=== PATIENT | female | born 2000 | race African-American/Black ===

== ENCOUNTER 2024-03-23 07:44 | Outpatient (CLI) | payer OTHER, SELFPAY ==
--- NOTE | 2024-03-23 07:45 | US_ITS ---
PROCEDURE: US TRANSVAGINAL CLINICAL INDICATION: amenorrhea COMPARISON: No exams were available for comparison FINDINGS: Transvaginal sonographic images of the pelvis were obtained. UTERUS: 7.3cm x 4.2cmx 3.6 cm anteverted then became retroverted during the exam with a combined endometrial thickness of 9.4mm. LEFT OVARY: 3.2cmx2.3cmx1.6cm with a volume of 6ml. There is a dominant follicle measuring 1.3 x 0.8 x 0.9 cm. The ovary has a polycystic appearance. RIGHT OVARY: 3.5cmx 1.8 cmx2.0cm with a volume of 6.6ml. The ovary has a polycystic appearance. Both ovaries are seen and appear polycystic. Doppler flow to both ovaries are seen. There is trace fluid in the cul-de-sac. IMPRESSION: 1. Anteverted uterus normal in shape and size that became retroverted during the procedure. The endometrium is 9.4 mm. 2. Both ovaries are seen and appear polycystic. The left ovary has a dominant follicle measuring 1.3 cm 3. There is trace fluid in the cul-de-sac. Dictated by: Devante Mistry MD 03/23/2024 09:58 Devante Mistry MD in OV 03/23/2024 09:58
[2024-03-23 09:46] LABS: Basophils # 0.1 K/mm3 (0-0.2); Basophils % 0.7 % (0.1-2.0); Eosinophils # 0.2 K/mm3 (0.0-0.4); Eosinophils % 2.3 % (0.1-12.0); Hematocrit 42.1 % (37.0-47.0); Hemoglobin 13.8 g/dL (12.2-16.2); Lymphocytes # 3.3 K/mm3 (0.7-4.5); Lymphocytes % 38.6 % (10-50); Mean Corpuscular HGB Conc 32.8 g/dL (31.8-35.4); Mean Corpuscular Volume 85.4 fl (81-99); Mean Platelet Volume 8.3 fl (7.4-10.4); Monocytes # 0.4 K/mm3 (0.1-1.0); Monocytes % 4.7 % (1.7-9.3); Neutrophils # 4.6 K/mm3 (1.8-7.8); Neutrophils % 53.6 % (37.0-80.0); Platelet Count 289 K/mm3 (142-424); Red Blood Count 4.93 M/mm3 (4.20-5.40); Red Cell Distribution Width 14.2 % (11.5-17.5); White Blood Count 8.5 K/mm3 (4.8-10.8)
[2024-03-23 10:02] LABS: Alanine Aminotransferase 24 U/L (12-78); Albumin Level 4.6 g/dl (3.5-5.0); Albumin/Globulin Ratio 1.4 (1.1-1.8); Alkaline Phosphatase 99 U/L (38-126); Aspartate Amino Transferase 28 U/L (14-36); Bilirubin,Total 0.3 mg/dl (0.2-1.3); Blood Urea Nitrogen 14 mg/dl (7-17); Carbon Dioxide 24 mmol/L (22.0-30.0); Chloride 103 mmol/L (98-107); Estimated Glomerular Filt Rate 76 ml/min (>60); GFR (African American) 92 ML/MIN (>60); Globulin 3.2 g/dL (1.3-3.2); Glucose 103 mg/dl (74-100); Sodium 139 mmol/L (136-145); Total Protein,Serum 7.8 g/dl (6.3-8.2)
[2024-03-23 10:29] LABS: Thyroid Stimulating Hormone 4.84 uIU/mL (0.465-4.68)
[2024-03-24 11:08] LABS: FSH 2.9 mIU/mL (.)
[2024-03-24 13:30] LABS: LH 19.3 mIU/mL (.); Prolactin 30.5 ng/mL (4.8-33.4)
[2024-03-30 06:00] LABS: Free Testosterone (Direct) 0.9 pg/mL (0.0-4.2); Testosterone, Total, LC/MS 60.5 ng/dL (10.0-55.0)
== END 2024-03-23 23:59 | disposition home or self-care (01) ==
PROVIDERS: Visit Provider Obstetrics & Gynecology
DX: E28.2 Polycystic ovarian syndrome (principal)
CPT/HCPCS: 36415; 76830; 80053; 82626; 82670; 83001; 83002; 83498; 84146; 84443; 85025